=== PATIENT | female | born 2000 | race Two or more races ===

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

== ENCOUNTER 2018-06-07 01:53 | Emergency (ER) | payer OTHER ==
[2018-06-07 02:31] VITALS: BMI 22.3
--- NOTE | 2018-06-07 02:31 | PDOC ---
History of Present Illness - General Chief Complaint: Headache Stated Complaint: HEADACHE/DIZZINESS Time Seen by Provider: 06/07/18 02:31 History Source: Patient, Custom Shoemaker Used Exam Limitations: Language Barrier - History of Present Illness Initial Comments: 17 yo F w no pmh presents to the ER via private auto with her friend because she has had a headache for 3 days, back pain, and a fever. She states she has already sweated out the fever. She has taken acetaminophen and ibuprofen for the headache but they have only minimally helped. She has she has taken a total of 6 pills of both tylenol and motrin. She denies having any neck pain. She rates her headache as an 8/10 right now. The pain is mainly on the right side of her head. She has never had a headache like this before. She denies having had any sick contacts. She has experienced blurry vision a few days ago but denies blurry vision today. She endorses nausea and one episode of NBNB vomitus which occured last night. She also admits to having had a sore throat for the past 3 days. LMP: 05/27/18 - was normal Sexual activity: Sexually active with 1 male and uses condoms for contraception. Measurer: None PCP: None PSH: None reported Social Hx: Denies smoking, drinking, or other substance usage. Allergies: NKA, NKDA Past History - Past Medical History Allergies/Adverse Reactions: Allergies Allergy/AdvReac Type Severity Reaction Status Date / Time No Known Allergies Allergy Verified 06/07/18 02:30 Home Medications: Ambulatory Orders Cephalexin [Keflex] 500 mg PO TID #30 capsule 06/07/18 Asthma: No Cancer: No Cardiac Disorders: No Diabetes: No HTN: Yes Seizures: No Thyroid Disease: No - Suicide/Smoking/Psychosocial Hx Smoking History: Never smoked Have you smoked in the past 12 months: No Information on smoking cessation initiated: No Hx Alcohol Use: No Drug/Substance Use Hx: No Hx Substance Use Treatment: No Review of Systems - Review of Systems Able to Perform ROS?: Yes Comments:: CONSTITUTIONAL: Present: Fever, chills, sweats, fatigue EYES: Absent: visual changes ENT: Present: Sore throat Absent: ear pain CARDIOVASCULAR: Absent: chest pain, no palpitations RESPIRATORY: Absent: cough, no SOB GI: Present: Nausea, vomiting Absent: abdominal pain, no constipation, no diarrhea GENITOURINARY: Absent: dysuria, no frequency, no hematuria MUSKULOSKELETAL: Present: Back pain Absent: no arthralgia, no myalgia SKIN: Absent: rash NEURO: Present: headache *Physical Exam - Vital Signs Last Vital Signs Temp Pulse Resp BP Pulse Ox 99.7 F H 105 H 18 105/61 97 06/07/18 01:53 06/07/18 01:53 06/07/18 01:53 06/07/18 01:53 06/07/18 01:53 - Physical Exam Comments: GENERAL: Patient is sweaty. Well-appearing, well-nourished. Mild distress. HEENT: Oropharynx is erythematous with white exudates. Normocephalic, atraumatic. PERRL , EOM intact. CARDIOVASCULAR: Tachycardic rate. Normal S1, S2. Regular rhythm. PULMONARY: No evidence of respiratory distress. Lungs clear to auscultation bilaterally. No wheezing, rales or rhonchi. ABDOMEN: Mild bilateral CVA tenderness. Soft, non-distended, non-tender. EXTREMITIES: Normal ROM in all four extremities. No gross deformities. SKIN: Warm, sweaty. No rash NEUROLOGICAL: No focal neurological deficits. Negative kernig and brudinsky. ED Treatment Course - LABORATORY CBC & Chemistry Diagram: 06/07/18 03:07 06/07/18 03:07 Medical Decision Making - Medical Decision Making 17 yo F w no pmh presents to the ER via private auto with her friend because she has had a headache for 3 days, back pain, and a fever. She states she has already sweated out the fever. She has taken acetaminophen and ibuprofen for the headache but they have only minimally helped. She has she has taken a total of 6 pills of both tylenol and motrin. She denies having any neck pain. She rates her headache as an 8/10 right now. The pain is mainly on the right side of her head. She has never had a headache like this before. She denies having had any sick contacts. She has experienced blurry vision a few days ago but denies blurry vision today. She endorses nausea and one episode of NBNB vomitus which occured last night. VS: Tachycardic, febrile DDx IBNLT: meningitis - likely viral, URI, gastroenteritis, influenza, other viral illness, electrolyte/metabolic disturbance, UTI/Pylo, kidney stones, . Plan: Labs, Urine, EKG, flu swab, strep swab, IV hydration, analgesia, supportive care, re-assess. Cbc shows elevated wbc count to 16.6 with a left shift - Potassium mildly low - will replete orally Patient is very well appearing and feels good after IV hydration and meds. She requests discharge and states she will see a doctor this week to make sure she is getting better. - She does not have a primary care doctor so will put her in touch with residents clinic across the street. Group A strep positive - sending keflex to her pharmacy. *DC/Admit/Observation/Transfer Diagnosis at time of Disposition: Strep throat - Discharge Dispostion Disposition: HOME Condition at time of disposition: Improved Decision to Admit order: No - Prescriptions Prescriptions: Cephalexin [Keflex] 500 mg PO TID #30 capsule - Referrals Referrals: [facility] [place] [Provider Group] - Patient Instructions Printed Discharge Instructions: Strep Throat Additional Instructions: You came into the ER with a headache and fever. You have strep throat. Drink plenty of fluids and take motrin/ibuprofen/advil and tylenol as needed for pain. We are sending an Antibiotic to your pharmacy - please make sure to go and pick it up. Please make sure to schedule a follow up appointment with another doctor in the next 24 to 48 hours to make sure you are getting better and being taken care of. Please come back to the ER immediately if your pain worsens, you become nauseous , start vomiting, or have any other new or worsening concerns. Thank you for coming to the [facility] ER. We hope you feel better soon! Print Language: SPA - Post Discharge Activity
[2018-06-07] MEDS ORDERED: SODIUM CHLORIDE 1,000 ML IV ONE (02:50)
[2018-06-07] MEDS ORDERED: METOCLOPRAMIDE HCL INJECTION 10 MG/2 ML VIAL IVPUSH ONE (02:51)
[2018-06-07] MEDS ORDERED: ACETAMINOPHEN 1000 MG/100 ML VIAL (NON FORMULARY) IVPB ONE (02:51)
--- NOTE | 2018-06-07 03:05 | PDOC ---
Attending Attestation - Resident Resident Name: Charlie Patten - ED Attending Attestation I have performed the following: I have examined & evaluated the patient, The case was reviewed & discussed with the resident, I agree w/resident's findings & plan - HPI HPI: 06/07/18 03:04 Pt comes with NINA and sore throat x 3 days. SHe has been taking motrin and tylenol at home with minimal relief. She has kids, but nobody is ill. She has no job. No ill contacts 06/07/18 04:37 Pt feeling better with treatment - Physicial Exam PE: 06/07/18 03:05 Agree with resident exam 06/07/18 04:38 Throat exudates were swabbed and sent to the lab - Medical Decision Making 06/07/18 04:39 Feeling better and she will be sent home once strep results return
[2018-06-07 03:18] LABS: BASO % 0.7 % (0-2.0); HEMATOCRIT 37.1 % (32.4-45.2); HEMOGLOBIN 12.4 GM/dL (10.7-15.3); LYMPH % 7.7 % (8-40); MCH 28.4 pg (25.7-33.7); MCHC 33.3 g/dl (32.0-36.0); MEAN CELL VOLUME 85.2 fl (80-96); MEAN PLT VOLUME 9.5 fl (7.5-11.1); MONO % 5.8 % (3.8-10.2); NEUT % 85.8 % (42.8-82.8); PLATELET COUNT 189 K/MM3 (134-434); RBC 4.36 M/mm3 (3.60-5.2); RDW 13.2 % (11.6-15.6); WHITE BLOOD COUNT 16.6 K/mm3 (4.0-10.0)
[2018-06-07 03:23] LABS: HCG,QUALITATIVE URINE Negative
[2018-06-07 03:49] LABS: EPI CELLS 6.3 /HPF (0-5/HPF); PH,URINE 7.5 (5.0-8.0); URINE APPEARANCE CLEAR; URINE BACTERIA 69.6 /hpf (NEGATIVE); URINE BILIRUBIN NEGATIVE (NEGATIVE); URINE CASTS 3 /hpf (0-8); URINE COLOR YELLOW; URINE GLUCOSE (UA) NEGATIVE (NEGATIVE); URINE KETONE 1+ (NEGATIVE); URINE LEUK ESTERASE 1+ (NEGATIVE); URINE NITRITE NEGATIVE (NEGATIVE); URINE PROTEIN NEGATIVE (NEGATIVE); URINE RBC 2 /hpf (0-4); URINE WBC 4 /hpf (0-5)
[2018-06-07] MEDS ORDERED: METOCLOPRAMIDE HCL INJECTION 10 MG/2 ML VIAL ONE (03:53)
[2018-06-07] MEDS ORDERED: ACETAMINOPHEN INJECTION 100 ML IVPB ONE (03:54)
[2018-06-07 03:55] LABS: ALK PHOS 89 U/L (45-117); ANION GAP 7 MMOL/L (8-16); BILIRUBIN,TOTAL 0.4 mg/dL (0.2-1); BLOOD UREA NITROGEN 8 mg/dL (7-18); CALCIUM 8.5 mg/dL (8.5-10.1); CHLORIDE 101 mmol/L (98-107); CO2 25 mmol/L (21-32); CREATININE 0.6 mg/dL (0.55-1.3); GLUCOSE,RANDOM 113 mg/dL (74-106); POTASSIUM 3.3 mmol/L (3.5-5.1); SGOT/AST 19 U/L (15-37); SGPT/ALT 17 U/L (13-61); SODIUM 134 mmol/L (136-145); TOT PROT 7.3 g/dl (6.4-8.2)
[2018-06-07] MEDS ORDERED: POTASSIUM CHLORIDE ORAL LIQUID 20 MEQ/15 ML PO ONE (03:58)
[2018-06-07] MEDS ORDERED: POTASSIUM CHLORIDE ORAL LIQUID 20 MEQ/15 ML ONE (03:59)
[2018-06-07] MEDS ORDERED: MAGNESIUM SULF 50% (8.12 MEQ/2 ML-1 GM VIAL) IVPB ONE (04:05)
[2018-06-07] MEDS ORDERED: MAGNESIUM 1GM/D5W - 1 GM/100 ML IVPB IVPB ONE (04:18)
[2018-06-07] MEDS ORDERED: CEPHALEXIN MONOHYDRATE 500 MG CAPSULE (UD) PO ONE (04:54)
[2018-06-07 05:01] VITALS: BP 95/54; PULSE 89; TEMP 98
[2018-06-07] MEDS ORDERED: CEPHALEXIN MONOHYDRATE 500 MG CAPSULE (UD) ONE (05:11)
--- NOTE | 2018-06-07 10:26 | EKG ---
Test Reason : Blood Pressure : / mmHG Vent. Rate : 083 BPM Atrial Rate : 083 BPM P-R Int : 152 ms QRS Dur : 076 ms QT Int : 390 ms P-R-T Axes : 048 046 044 degrees QTc Int : 458 ms SINUS RHYTHM WITH MARKED SINUS ARRHYTHMIA POSSIBLE LEFT ATRIAL ENLARGEMENT BORDERLINE ECG NO PREVIOUS ECGS AVAILABLE Confirmed by JANINA CHACON MD ([id number]) on 06/07/2018 10:26:21 AM Referred By: BARBARA Confirmed By:JANINA CHACON MD
== END 2018-06-07 05:33 | disposition home or self-care (01) ==
LOC: JER 01:53
PROC: 3E0337Z Introduction of Electrolytic and Water Balance Substance into Peripheral Vein, Percutaneous Approach (ICD-10-PCS; principal; 2018-06-07)
PROC: 3E033GC Introduction of Other Therapeutic Substance into Peripheral Vein, Percutaneous Approach (ICD-10-PCS; 2018-06-07)
PROC: 3E033GC Introduction of Other Therapeutic Substance into Peripheral Vein, Percutaneous Approach (ICD-10-PCS; 2018-06-07)
PROC: 3E033NZ Introduction of Analgesics, Hypnotics, Sedatives into Peripheral Vein, Percutaneous Approach (ICD-10-PCS; 2018-06-07)
DX: J02.0 Streptococcal pharyngitis (principal); B95.0 Streptococcus, group A, as the cause of diseases classified elsewhere; E87.6 Hypokalemia; D72.829 Elevated white blood cell count, unspecified
CPT/HCPCS: 36415; 80053; 81003; 84703; 85025; 87804; 87880; 93005; 93010; 96361; 96374; 96375; 99282-25; J0131; J7030

== ENCOUNTER 2020-03-09 04:47 | Day surgery (SDC) | payer OTHER ==
[2020-03-08 13:37] VITALS: BMI 23.8
[2020-03-09 08:38] LABS: HEMATOCRIT 37.4 % (32.4-45.2); HEMOGLOBIN 12.5 GM/dL (10.7-15.3); MCH 28.9 pg (25.7-33.7); MCHC 33.3 g/dl (32.0-36.0); MEAN CELL VOLUME 86.8 fl (80-96); MEAN PLT VOLUME 9.8 fl (7.5-11.1); PLATELET COUNT 229 K/MM3 (134-434); RBC 4.32 M/mm3 (3.60-5.2); RDW 13.2 % (11.6-15.6); WHITE BLOOD COUNT 6.2 K/mm3 (4.0-10.0)
[2020-03-09 08:56] LABS: POTASSIUM 3.9 mmol/L (3.5-5.1)
[2020-03-09 09:03] LABS: ALBUMIN 3.9 g/dl (3.4-5.0); BLOOD UREA NITROGEN 16.8 mg/dL (7-18)
[2020-03-09 09:05] LABS: CREATININE 0.6 mg/dL (0.55-1.3)
[2020-03-09 09:07] LABS: BILIRUBIN,TOTAL 0.5 mg/dL (0.2-1); TOT PROT 6.9 g/dl (6.4-8.2)
[2020-03-09] MEDS ORDERED: LIDOCAINE HCL/PF 2% SDV 5ML VIAL ONE (09:29)
[2020-03-09] MEDS ORDERED: fentaNYL CITRATE 250 MCG/5 ML VIAL ONE (09:29)
[2020-03-09] MEDS ORDERED: DEXAMETHASONE SOD PHOSPHATE 4 MG/1 ML VIAL ONE (09:29)
[2020-03-09] MEDS ORDERED: PROPOFOL 20 ML ONE (09:29)
[2020-03-09] MEDS ORDERED: MIDAZOLAM HCL 2 MG/2 ML SINGLE DOSE VIAL ONE (09:29)
[2020-03-09] MEDS ORDERED: ROCURONIUM BROMIDE 50 MG/5 ML SYRINGE ONE (09:29)
[2020-03-09] MEDS ORDERED: ceFAZolin 2 GRAM PREMIX BAG IVPB ONE (10:12)
[2020-03-09] MEDS ORDERED: ceFAZolin SODIUM 1 GM VIAL ONE (10:17)
[2020-03-09] MEDS ORDERED: oxyCODONE HCL 5 MG TABLET PO PRN (10:34)
[2020-03-09] MEDS ORDERED: ONDANSETRON 4 MG/2 ML VIAL IVPUSH PRN (10:34)
[2020-03-09] MEDS ORDERED: LACTATED RINGERS SOLUTION 1,000 ML IV SCH (10:45)
[2020-03-09] MEDS ORDERED: GLYCOPYRROLATE 0.2 MG/1 ML VIAL ONE (11:01)
[2020-03-09] MEDS ORDERED: KETOROLAC TROMETHAMINE 30 MG/1 ML VIAL ONE (11:01)
[2020-03-09] MEDS ORDERED: NEOSTIGMINE METHYLSULFATE 0.5 MG/ML - 10 ML MDV ONE (11:01)
[2020-03-09 12:51] VITALS: PULSE 68; TEMP 97.4
[2020-03-09] MEDS ORDERED: oxyCODONE HCL 5 MG TABLET ONE (13:55)
[2020-03-09 14:28] VITALS: BP 107/62
== END 2020-03-09 14:42 | disposition home or self-care (01) ==
LOC: JASU-SURG 04:47
PROVIDERS: ATTEND Obstetrics & Gynecology
PROC: 0UB14ZZ Excision of Left Ovary, Percutaneous Endoscopic Approach (ICD-10-PCS; principal; 2020-03-09 09:30)
DX: N83.12 Corpus luteum cyst of left ovary (principal); N83.201 Unspecified ovarian cyst, right side
CPT/HCPCS: 36415; 80053; 84703; 85027; 86850; 86900; 86901; 88305-TC; 94760

== ENCOUNTER 2021-09-25 14:34 | Emergency (ER) | payer OTHER ==
[2021-09-25 15:07] VITALS: BP 100/62; PULSE 74; RESP 18; TEMP 98.4; BMI 21.6
[2021-09-25 17:35] LABS: EPI CELLS 21 /uL (0-25.1); HYALINE CASTS 2 /uL (0-3.1); PH,URINE 7.5 (5.0-8.0); URINE APPEARANCE CLEAR; URINE BACTERIA 1008 /uL (0-1359); URINE BILIRUBIN NEGATIVE (NEGATIVE); URINE COLOR YELLOW; URINE GLUCOSE (UA) NEGATIVE (NEGATIVE); URINE KETONE NEGATIVE (NEGATIVE); URINE LEUK ESTERASE 3+ (NEGATIVE); URINE NITRITE NEGATIVE (NEGATIVE); URINE PROTEIN NEGATIVE (NEGATIVE); URINE RBC 11 /uL (0-23.9); URINE UROBILINOGEN 0.2 mg/dL (0.2-1.0); URINE WBC 221 /uL (0-25.8)
== END 2021-09-25 17:14 | disposition left against medical advice (07) ==
LOC: JERFT 14:34
DX: A60.04 Herpesviral vulvovaginitis (principal)
CPT/HCPCS: 36415; 81003; 84703; 87077; 87086; 87491; 87591; 99283-25

== ENCOUNTER 2023-11-23 17:41 | Emergency (ER) | payer OTHER ==
[2023-11-23 18:27] VITALS: BP 114/77; PULSE 75; RESP 17; TEMP 98.5; BMI 23.3
[2023-11-23] MEDS ORDERED: ALBUTEROL SO4 2.5/IPRATROPIUM 0.5 INH SOL 3 ML VIAL.NEB. NEB ONE (21:03)
[2023-11-23] MEDS ORDERED: predniSONE 20 MG TABLET (UD) ONE (21:04)
[2023-11-23] MEDS: predniSONE 20 MG TABLET (UD) PO ONE (21:10)
[2023-11-23] MEDS: ALBUTEROL SO4 2.5/IPRATROPIUM 0.5 INH SOL 3 ML VIAL.NEB. NEB ONE (21:10)
== END 2023-11-23 21:18 | disposition home or self-care (01) ==
LOC: JERFT 17:41 → JER 17:41 → JERFT 21:18
PROC: 3E0F7GC Introduction of Other Therapeutic Substance into Respiratory Tract, Via Natural or Artificial Opening (ICD-10-PCS; principal; 2023-11-23)
DX: R05.9 Cough, unspecified (principal); J40 Bronchitis, not specified as acute or chronic
CPT/HCPCS: 71046-TC-FY; 94640; 99283-25

== ENCOUNTER 2023-12-12 10:44 | Emergency (ER) | payer OTHER ==
[2023-12-12 11:03] VITALS: BP 109/72; PULSE 81; RESP 20; TEMP 99; BMI 23.3
[2023-12-12 12:48] LABS: BASO % 0.8 % (0-2.0); EOS % 1.8 % (0-4.5); HEMATOCRIT 37.6 % (32.4-45.2); HEMOGLOBIN 12.4 GM/dL (10.7-15.3); LYMPH % 43.6 % (8-40); MCH 27.3 pg (25.7-33.7); MCHC 32.9 g/dl (32.0-36.0); MEAN CELL VOLUME 83.1 fl (80-96); MONO % 8.9 % (3.8-10.2); NEUT % 44.9 % (42.8-82.8); PLATELET COUNT 167 10^3/uL (134-434); RBC 4.53 M/mm3 (3.60-5.2); WHITE BLOOD COUNT 5.6 K/mm3 (4.0-10.0)
[2023-12-12 12:48] LABS: PH,URINE >= 9.0 (5.0-8.0); URINE APPEARANCE CLEAR; URINE BILIRUBIN NEGATIVE (NEGATIVE); URINE COLOR YELLOW; URINE GLUCOSE (UA) NEGATIVE (NEGATIVE); URINE KETONE NEGATIVE (NEGATIVE); URINE LEUK ESTERASE NEGATIVE (NEGATIVE); URINE NITRITE NEGATIVE (NEGATIVE); URINE PROTEIN NEGATIVE (NEGATIVE)
[2023-12-12 12:57] LABS: HCG,QUALITATIVE URINE Negative
[2023-12-12 13:13] LABS: POTASSIUM 3.7 mmol/L (3.5-5.1)
[2023-12-12 13:15] LABS: ALBUMIN 3.8 g/dl (3.4-5.0); BLOOD UREA NITROGEN 7.7 mg/dL (7-18); CALCIUM 9.1 mg/dL (8.5-10.1)
[2023-12-12 13:19] LABS: CREATININE 0.6 mg/dL (0.55-1.3)
[2023-12-12 13:20] LABS: BILIRUBIN,TOTAL 0.3 mg/dL (0.2-1); TOT PROT 7.6 g/dl (6.4-8.2)
[2023-12-12 20:47] LABS: HIV INTERPRETATION NEGATIVE (NEGATIVE)
== END 2023-12-12 15:32 | disposition home or self-care (01) ==
LOC: JER 10:44
DX: R07.89 Other chest pain (principal); R51.9 Headache, unspecified
CPT/HCPCS: 36415; 70450-TC; 71046-TC-FY; 80053; 81003; 84703; 85025; 86803; 87389; 93005; 93010; 99285-25